=== PATIENT | female | born 1995 | race Caucasian/White ===

== ENCOUNTER 2017-04-02 02:46 | Emergency (ER) | payer SELFPAY ==
[~2017-04-02] VITALS: Ht 177.8 cm; Wt 75.0 kg
[~2017-04-02 02:46] MED LIST: OXYC1TAB63 PO; PREN0.01 PO
[2017-04-02 02:48] VITALS: BP 118/75; PULSE 106; RESP 20; TEMP 98.4; O2SAT 99
--- NOTE | 2017-04-02 03:07 | PD ---
HPI Chief Complaint: Injury Time Seen by Provider: 02:56 Travel History International Travel<30 days: No Contact w/Intl Traveler<30days: No Traveled to known affect area: No History of Present Illness HPI 21-year-old white female presents to emergency Department with complaints of right ankle pain after inversion injury earlier this evening. She does not recall a pop or crack. She states that she was able to bear weight initially but now has become too uncomfortable. She states pain is mild but moderate as she attempts to bear weight. Some relief of pain with elevation and ice. Worsened by walking. No neck or back pain. PFSH Past Medical History Cardiovascular Problems: Yes (murmur) Developmental Delay: No Diminished Hearing: No Immunizations Current: Yes Tetanus Vaccination: < 5 Years Influenza Vaccination: No ?: Unknown : 1 Past Surgical History Surgical History: No Previous Surgery Social History Alcohol Use: Yes Tobacco Use: No Substance Use: No Allergies-Medications (Allergen,Severity, Reaction): Coded Allergies: No Known Allergies (Verified Adverse Reaction, Unknown, 04/02/17) Reported Meds & Prescriptions Reported Meds & Active Scripts Active Diclofenac Sodium DR (Diclofenac Sodium) 75 Mg Tabdr 75 Mg PO BID 10 Days Review of Systems General / Constitutional: No: Fever Eyes: No: Visual changes HENT: No: Headaches Cardiovascular: No: Chest Pain or Discomfort Respiratory: No: Shortness of Breath Gastrointestinal: No: Abdominal Pain Genitourinary: No: Dysuria Musculoskeletal: Positive: Arthralgias, Limited ROM, Pain Skin: No Rash Neurologic: No: Weakness Psychiatric: No: Depression Endocrine: No: Polydipsia Hematologic/Lymphatic: No: Easy Bruising Physical Exam Narrative GENERAL: This is a well-nourished, well-developed patient, in no apparent distress. SKIN: No rashes, ecchymoses or lesions. Warm and dry. HEAD: Atraumatic. Normocephalic. EYES: PERRL, EOMI, no discharge or injection. No scleral icterus. EARS: Clear NOSE: Nasal turbinates appear normal. THROAT: Mucosa pink and moist. Airway patent. NECK: Trachea midline. supple, moves head freely. LUNGS: Clear to auscultation. CV: Regular in rhythm. ABDOMEN: Soft nontender. EXT: No clubbing cyanosis or edema. Examination the right lower extremity reveals pain to the anterior talar fibular ligament. No pain in the heel, Achilles, mediolateral malleolus. No pain in the proximal distal forefoot. She has intact sensation with good distal pulses. Skin is intact. No pain in the knee or hip. Data Data Last Documented VS Vital Signs Date Time Temp Pulse Resp B/P (MAP) Pulse Ox O2 Delivery O2 Flow Rate FiO2 04/02/17 02:48 98.4 106 20 118/75 (89) 99 Orders Orders Ankle, Complete ([id number]) (04/02/17 03:01) Ibuprofen (Motrin) (04/02/17 03:15) Ice/Cold Pack (04/02/17 03:09) Splint Or Brace Apply/Monitor (04/02/17 03:09) Crutches (04/02/17 03:09) Ed Discharge Order (04/02/17 03:45) MDM Medical Decision Making Medical Screen Exam Complete: Yes Emergency Medical Condition: Yes Medical Record Reviewed: Yes Interpretation(s) Last 24 hours Impressions Ankle X-Ray 04/02/17 0301 Signed Impressions: Service Date/Time: Sunday, April 02, 2017 03:18 - CONCLUSION: No evidence of recent bony injury. Trev Edward MD Right ankle: Negative for acute fracture. Differential Diagnosis MDM: High Differential diagnoses: Fracture, sprain, strain, dislocation, contusion, neurovascular injury Narrative Course X-ray of the right ankle is negative. Patient given Nigel wrap, crutches and Motrin 600 mg by mouth. Ice pack applied. Diagnosis Primary Impression: right ankle sprain Patient Instructions: General Instructions Additional Instructions: Rest. Elevation. Ice packs for the next 3 days. Nigel wrap and crutches. No weight-bearing and then progress to weight-bearing as tolerated. Medications as directed Follow-up with an orthopedist or your doctor in one week. Return to the ER if any problems Med/Other Pt SpecificInfo: Prescription(s) given Scripts Diclofenac Sodium DR (Diclofenac Sodium DR) 75 Mg Tabdr 75 MG PO BID for 10 Days, #20 TAB 0 Refills Prov: Maylin Green MD 04/02/17 Disposition: 01 DISCHARGE HOME Condition: Stable Luis Carlos Davila Apr 02, 2017 03:07
[2017-04-02] MEDS ORDERED: DICL75TA PO (03:08)
[2017-04-02] MEDS ORDERED: IBUPROFEN 600 MG TAB PO ONE (03:15)
--- NOTE | 2017-04-02 03:34 | RADRPT ---
EXAM DATE/TIME: 04/02/2017 03:18 [facility] COMPARISON: No previous studies available for comparison. INDICATIONS : Fall and pain in right ankle. MEDICAL HISTORY : None. SURGICAL HISTORY : None. ENCOUNTER: Initial ACUITY: 1 day PAIN SCORE: 5/10 LOCATION: Right chest FINDINGS: Three view exam was performed of the right ankle. The bony structures are in normal alignment. No e vidence of fracture, dislocation, or soft tissue swelling. The ankle mortise is intact. No radiopaq ue foreign bodies are seen. Bony mineralization is normal. CONCLUSION: No evidence of recent bony injury. Trev Edward MD on April 02, 2017 at 3:32 Board Certified Radiologist. This report was verified electronically.
== END 2017-04-02 04:07 | disposition home or self-care (01) ==
LOC: NEPD 02:46
DX: S93.401A Sprain of unspecified ligament of right ankle, initial encounter (principal); X58.XXXA Exposure to other specified factors, initial encounter
CPT/HCPCS: 73610; 99283; E0113

== ENCOUNTER 2017-07-30 10:52 | Emergency (ER) | payer MEDICAID ==
[~2017-07-30] VITALS: Ht 165.1 cm; Wt 68.0 kg
[~2017-07-30 10:52] MED LIST changes: +DICL75TA PO; -OXYC1TAB63 PO; -PREN0.01 PO
[2017-07-30 11:06] VITALS: BP 126/68; PULSE 74; RESP 20; TEMP 98.1; O2SAT 99
--- NOTE | 2017-07-30 11:23 | PD ---
HPI Chief Complaint: Syncope/Near-Syncope Time Seen by Provider: 11:23 Travel History International Travel<30 days: No Contact w/Intl Traveler<30days: No Traveled to known affect area: No History of Present Illness HPI 22-year-old female came to the emergency room with history of frequent near syncopal episode for past 5 months. Patient has a [id number] baby. Says that she starts feeling ringing in her ears and some tunnel vision. Occasionally there is some palpitations in her chest and feels like she is very sweaty and will be passing out. This happens once to twice every day or every other day. However in neither of these occasions has she completely fainted. Patient had an IUD placed 5 months ago after which the symptoms started. Her OB had said that could be the side effect of the IUD and the IUD was taken out after 3-4 months. However the symptoms have continued in spite of the idea being taken out. Vital signs are stable. Today she was taking care of her baby when she started feeling like this. She went to her neighbor's place and sat down there and called her mother. Her mother has brought her in. Currently she says she feels little weak but vital signs were stable. She is otherwise a healthy person. She is not on any medications on a daily basis. No history of alcohol or substance abuse. No history of chest pain. No associated shortness of breath. PFSH Past Medical History Narrative Medical List of her past medical, surgical, social and family history is reviewed from the nursing note. Cardiovascular Problems: Yes (murmur) Developmental Delay: No Diminished Hearing: No Immunizations Current: Yes Influenza Vaccination: No ?: Unknown LMP: 07/06/17 : 1 Past Surgical History Surgical History: No Previous Surgery Social History Alcohol Use: Yes (occasionally) Tobacco Use: No Substance Use: No Allergies-Medications (Allergen,Severity, Reaction): Coded Allergies: No Known Allergies (Verified Adverse Reaction, Unknown, 07/30/17) Comments No known drug allergies. Reported Meds & Prescriptions Reported Meds & Active Scripts Active No Active Prescriptions or Reported Medications Narrative Medication List of her home medications reviewed from the nursing note Review of Systems Except as stated in HPI: all other systems reviewed are Neg Neurologic: Positive: Weakness, Dizziness Physical Exam Narrative GENERAL: Awake, alert, anxious, no obvious distress SKIN: Focused skin assessment warm/dry. HEAD: Atraumatic. Normocephalic. EYES: Pupils equal and round. No scleral icterus. No injection or drainage. ENT: No nasal bleeding or discharge. Mucous membranes pink and moist. NECK: Trachea midline. No JVD. CARDIOVASCULAR: Regular rate and rhythm. No murmur appreciated. RESPIRATORY: No accessory muscle use. Clear to auscultation. Breath sounds equal bilaterally. GASTROINTESTINAL: Abdomen soft, non-tender, nondistended. Hepatic and splenic margins not palpable. MUSCULOSKELETAL: No obvious deformities. No clubbing. No cyanosis. No edema. NEUROLOGICAL: Awake and alert. No obvious cranial nerve deficits. Motor grossly within normal limits. Normal speech. PSYCHIATRIC: Appropriate mood and affect; insight and judgment normal. Data Data Last Documented VS Orders Orders Electrocardiogram (07/30/17 11:36) Basic Metabolic Panel (Bmp) (07/30/17 11:36) Complete Blood Count With Diff (07/30/17 11:36) Magnesium (Mg) (07/30/17 11:36) Prothrombin Time / Inr (Pt) (07/30/17 11:36) Troponin I (07/30/17 11:36) Ecg Monitoring (07/30/17 11:36) Bilateral Bp Monitoring (07/30/17 11:36) Iv Access Insert/Monitor (07/30/17 11:36) Oximetry (07/30/17 11:36) Oxygen Administration (07/30/17 11:36) Sodium Chloride 0.9% Flush (Ns Flush) (07/30/17 11:45) Orthostatic Vital Signs (07/30/17 11:36) Thyroid Stimulating Hormone (07/30/17 11:36) Sodium Chlor 0.9% 1000 Ml Inj (Ns 1000 M (07/30/17 11:45) Urinalysis - C+S If Indicated (07/30/17 11:42) Ed Urine Pregnancytest Poc (07/30/17 11:42) Ed Discharge Order (07/30/17 13:24) Labs Laboratory Tests Test 07/30/17 11:40 07/30/17 12:16 Urine Color LIGHT-YELLOW Urine Turbidity CLEAR Urine pH 6.5 Urine Specific [place] 1.013 Urine Protein NEG mg/dL Urine Glucose (UA) NEG mg/dL Urine Ketones NEG mg/dL Urine Occult Blood NEG Urine Nitrite NEG Urine Bilirubin NEG Urine Urobilinogen LESS THAN 2.0 MG/DL Urine Leukocyte Esterase TRACE Urine RBC LESS THAN 1 /hpf Urine WBC LESS THAN 1 /hpf Urine Squamous Epithelial Cells 6 /hpf Urine Mucus FEW /lpf Microscopic Urinalysis Comment CULT NOT INDICATED White Blood Count 7.4 TH/MM3 Red Blood Count 5.04 MIL/MM3 Hemoglobin 14.6 GM/DL Hematocrit 42.9 % Mean Corpuscular Volume 85.2 FL Mean Corpuscular Hemoglobin 29.0 PG Mean Corpuscular Hemoglobin Concent 34.0 % Red Cell Distribution Width 12.5 % Platelet Count 246 TH/MM3 Mean Platelet Volume 7.9 FL Neutrophils (%) (Auto) 79.3 % Lymphocytes (%) (Auto) 13.6 % Monocytes (%) (Auto) 5.7 % Eosinophils (%) (Auto) 0.9 % Basophils (%) (Auto) 0.5 % Neutrophils # (Auto) 5.9 TH/MM3 Lymphocytes # (Auto) 1.0 TH/MM3 Monocytes # (Auto) 0.4 TH/MM3 Eosinophils # (Auto) 0.1 TH/MM3 Basophils # (Auto) 0.0 TH/MM3 CBC Comment DIFF FINAL Differential Comment Prothrombin Time 10.2 SEC Prothromb Time International Ratio 1.0 RATIO Blood Urea Nitrogen 12 MG/DL Creatinine 0.71 MG/DL Random Glucose 83 MG/DL Calcium Level 9.3 MG/DL Magnesium Level 2.0 MG/DL Sodium Level 140 MEQ/L Potassium Level 4.1 MEQ/L Chloride Level 103 MEQ/L Carbon Dioxide Level 29.2 MEQ/L Anion Gap 8 MEQ/L Estimat Glomerular Filtration Rate 103 ML/MIN Troponin I LESS THAN 0.02 NG/ML Thyroid Stimulating Hormone 3rd Gen 1.400 uIU/ML MDM Medical Decision Making Medical Screen Exam Complete: Yes Emergency Medical Condition: Yes Medical Record Reviewed: Yes Interpretation(s) Twelve-lead EKG was reviewed by me. Normal sinus rhythm, normal axis, nonspecific ST-T wave changes. Heart rate of 73 bpm Differential Diagnosis Cardiac arrhythmia, orthostatic hypotension, anxiety, thyroid abnormality Narrative Course 1:22 PM blood test results are back and they are all within normal limits. Chest x-ray is negative. Orthostatic vital signs were normal. At this point I do not see any emergency since the vital signs have been stable and her condition has been going on for past 5 months. I have asked the patient to get a primary care and have the primary care put on a Holter monitor. From ER standpoint I am comfortable discharging her home. Procedures EKG Prior to Arrival: No Diagnosis Primary Impression: Near syncope Referrals: [facility] Additional Instructions: Please find a primary care to have a Holter monitor placed. You could also go to the walk-in clinic whose address has been provided to you on this discharge instruction. Return to the ER if condition worsens or any other new concerns. Med/Other Pt SpecificInfo: No Meds Exist/No RX given Scripts No Active Prescriptions or Reported Meds Disposition: 01 DISCHARGE HOME Condition: Stable Amelia Gauthier MD July 30, 2017 11:23
[2017-07-30] MEDS ORDERED: SODIUM CHLORIDE 0.9% FLUSH 10 ML FLUSH IVF PRN (11:45)
[2017-07-30] MEDS ORDERED: SODIUM CHLOR 0.9% 1000 ML INJ 1,000 ML IV ONE (11:45)
[2017-07-30 12:20] VITALS: BP_SYST 114; BP_SYST 117; BP_DIAS 62; BP_DIAS 64; BP_DIAS 69; RESP 12; RESP 18; RESP 20
[2017-07-30 12:33] LABS: AUTOMATED NEUTROPHIL # 5.9 TH/MM3 (1.8-7.7); BASOPHIL % 0.5 % (0.0-2.0); EOSINOPHIL # 0.1 TH/MM3 (0-0.4); EOSINOPHIL % 0.9 % (0.0-4.0); HEMATOCRIT 42.9 % (35.0-46.0); HEMOGLOBIN 14.6 GM/DL (11.6-15.3); LYMPH % 13.6 % (9.0-44.0); MEAN CELL VOLUME 85.2 FL (80.0-100.0); MEAN PLATELET VOLUME 7.9 FL (7.0-11.0); MONO % 5.7 % (0.0-8.0); MONOCYTE # 0.4 TH/MM3 (0-0.9); NEUT % 79.3 % (16.0-70.0); PLATELET COUNT 246 TH/MM3 (150-450); RED BLOOD COUNT 5.04 MIL/MM3 (4.00-5.30); RED CELL DISTRIBUTION WIDTH 12.5 % (11.6-17.2); WHITE BLOOD COUNT 7.4 TH/MM3 (4.0-11.0)
[2017-07-30 12:43] LABS: PROTHROMBIN TIME - PATIENT 10.2 SEC (9.8-11.6)
[2017-07-30 13:04] LABS: BICARBONATE 29.2 MEQ/L (21.0-32.0); BLOOD UREA NITROGEN 12 MG/DL (7-18); CALCIUM 9.3 MG/DL (8.5-10.1); CHLORIDE 103 MEQ/L (98-107); CREATININE 0.71 MG/DL (0.50-1.00); GLOMERULAR FILTRATION RATE 103 ML/MIN (>89); GLUCOSE,RANDOM 83 MG/DL (74-106); SODIUM (NA) 140 MEQ/L (136-145)
[2017-07-30 13:09] LABS: BILIRUBIN, URINE NEG (NEG); BLOOD, URINE NEG (NEG); GLUCOSE,URINE NEG (NEG); KETONE, URINE NEG (NEG); MUCUS URINE FEW /lpf (OCC); NITRITE,URINE NEG (NEG); PH, URINE 6.5 (5.0-8.5); SQUAMOUS EPITHELIAL CELL URINE 6 /hpf (0-5); URINE COLOR LIGHT-YELLOW (YELLW/STRAW); URINE LEUKOCYTE ESTERASE TRACE (NEG)
[2017-07-30 13:14] LABS: TROPONIN I LESS THAN 0.02 NG/ML (0.02-0.05)
--- NOTE | 2017-07-31 16:05 | EKG ---
Date Performed: 07/30/2017 Time Performed: 11:28:39 PTAGE: 22 years EKG: Sinus rhythm NORMAL ECG NO PREVIOUS TRACING DOCTOR: Katy Kaur Interpretating Date/Time 07/31/2017 16:02:46
== END 2017-07-30 14:31 | disposition home or self-care (01) ==
LOC: NEPD 10:52
DX: R55 Syncope and collapse (principal); R00.2 Palpitations
CPT/HCPCS: 80048; 81001; 83735; 84443; 84484; 84703; 85025; 85610; 93005; 99284; J7030